=== PATIENT | male | born 1945 | race Caucasian/White ===

== ENCOUNTER 2017-10-23 16:59 | Emergency (ER) | payer MEDICARE, OTHER ==
[~2017-10-23] VITALS: Ht 177.8 cm; Wt 79.1 kg
[2017-10-23 17:16] VITALS: TEMP 98.5
[2017-10-23] MEDS ORDERED: PRILOSEC 20MG20 MG PO (18:05)
[2017-10-23] MEDS ORDERED: NORVASC 10MG10 MG PO (18:06)
[2017-10-23] MEDS ORDERED: LOTENSIN40 MG PO (18:06)
[2017-10-23] MEDS ORDERED: CATAPRES0.2 MG PO (18:06)
[2017-10-23] MEDS ORDERED: LOZOL 2.5M2.5 MG/TAB PO (18:06)
[2017-10-23] MEDS ORDERED: NORCO 325 MG-51 TAB PO (18:07)
[2017-10-23] MEDS ORDERED: ASPIRIN 81M81 MG/TA2 PO (18:08)
[2017-10-23 18:58] LABS: COLLECTION METHOD CLEAN CATCH
[2017-10-23 19:05] LABS: PH 5 (5-8); SQUAMOUS EPITHELIAL 0-2 /hpf; URINE APPEARANCE Clear; URINE BACTERIA None Seen /hpf; URINE BILIRUBIN Negative (NEGATIVE); URINE BLOOD Negative (NEGATIVE); URINE COLOR Yellow; URINE GLUCOSE Negative (NEGATIVE); URINE KETONE Negative (NEGATIVE); URINE LEUKOCYTE ESTERASE Negative (NEGATIVE); URINE NITRATE Negative (NEGATIVE); URINE PROTEIN(semi-quant) Negative (NEGATIVE); URINE RBC 0-2 /hpf; URINE UROBILINOGEN Negative (NEGATIVE)
[2017-10-23 19:19] LABS: BASO % 0.2 % (0.0-2.0); GRAN % 87.2 % (42.2-75.2); HEMATOCRIT 40.6 % (42.0-52.0); LYMPH # 0.7 (1.2-3.4); LYMPH % 6.9 % (20.0-51.0); MEAN CELL VOLUME 94 fl (80.0-100.0); MEAN CORPUSCULAR HEMOGLOBIN 33 pg (27.0-31.0); MEAN CORPUSCULAR HGB CONC 35 g/dl (33.0-37.0); MEAN PLATELET VOLUME 9.2 fl (7.4-10.4); MONO # 0.6 (0.1-0.6); MONO % 5.4 % (1.7-9.3); PLATELET COUNT 237 K/mm3 (130-400); REDCELL DISTRIBUTION WIDTH-CV 11.9 % (11.5-14.5)
[2017-10-23 19:33] LABS: ALBUMIN 4.3 gm/dL (3.5-5.0); BILIRUBIN,TOTAL 0.6 mg/dL (0.0-1.0); C-REACTIVE PROTEIN 0.7 mg/dL (0.0-0.9); CALCIUM 9.4 mg/dL (8.4-10.2); CREATININE, serum 0.81 mg/dL (0.66-1.25); POTASSIUM 3.8 mmol/L (3.4-5.0)
[2017-10-23] MEDS ORDERED: PERCOCET 325 MG1 TA3 PO (21:31)
[2017-10-23 22:03] VITALS: BP 155/82; PULSE 83
== END 2017-10-23 22:15 | disposition home or self-care (01) ==
LOC: COL.ER 16:59
PROVIDERS: Emergency Medicine
DX: T84.090A Other mechanical complication of internal right hip prosthesis, initial encounter (principal); K59.00 Constipation, unspecified; I10 Essential (primary) hypertension; K21.9 Gastro-esophageal reflux disease without esophagitis; Z90.79 Acquired absence of other genital organ(s); Z98.890 Other specified postprocedural states; Z96.641 Presence of right artificial hip joint; Z79.82 Long term (current) use of aspirin
CPT/HCPCS: J2060; J7030; Q9967